=== PATIENT | male | born 1975 | race Caucasian/White ===

== ENCOUNTER 2025-03-24 10:11 | Day surgery (SDC) | payer OTHER ==
[2025-03-16 10:00] LABS: Hematocrit 46.7 % (41.0-53.0); Hemoglobin 15.4 g/dL (13.5-17.5); Mean Corpuscular Hemoglobin 30.7 pg (28.0-32.0); Mean Corpuscular Volume 92.8 fL (80.0-100.0); Nucleated Red Blood Cells % 0.1 %
[2025-03-16 10:17] LABS: INR 1.07 (0.9-1.15); Partial Thromboplastin Time 29.6 SEC (24.5-34.5); Prothrombin Time 11.3 sec (9.3-11.8)
[2025-03-16 11:15] LABS: Alanine Aminotransferase 39 U/L (7-40); Albumin 4.8 g/dL (3.2-4.8); Alkaline Phosphatase 109 U/L (46-116); Anion Gap 9 (5-15); BUN/Creatinine Ratio 11.1 (10.0-20.0); Bilirubin, Total 0.9 mg/dL (0.2-1.0); Blood Urea Nitrogen 11 mg/dL (9-23); Calcium 9.6 mg/dL (8.7-10.4); Carbon Dioxide 29 mmol/L (20-31); Chloride 104 mmol/L (98-107); Glucose 90 mg/dL (74-106); Potassium 4.3 mmol/L (3.5-5.1); Sodium 142 mmol/L (136-145); Total Protein 7.2 g/dL (5.7-8.2)
[~2025-03-24] VITALS: Ht 177.8 cm; Wt 59.0 kg
[2025-03-24 12:11] VITALS: PULSE 78; RESP 16; O2SAT 100
[2025-03-24] MEDS: MIDAZOLAM HCL 5 MG/ML-1ML VIAL ONE (12:17)
[2025-03-24] MEDS: fentaNYL CITRATE 100 MCG/2 ML VL ONE (12:17)
[2025-03-24] MEDS: diphenhydrAMINE HCL 50 MG/1 ML VL ONE (12:17)
[2025-03-24 12:45] VITALS: PULSE 59; RESP 14; TEMP 98.6; O2SAT 99
--- NOTE | 2025-03-24 12:49 | DVHOP2 ---
Operative Report DATE OF OPERATION: 03/24/25 PROCEDURE: Colonoscopy with cold biopsy polypectomy. PREOPERATIVE INDICATION: The patient is a 49 -year-old male undergoing colonoscopy for colon cancer screening POSTOPERATIVE DIAGNOSES: 1. Patient had a tiny 1-2 mm benign-appearing rectosigmoid polyp that was seen and removed by cold biopsy forceps 2. Trace internal hemorrhoids otherwise completely normal colonoscopy examination up to the cecum and terminal ileum PROCEDURE PERFORMED BY: Charlene Calderon M.D. SCOPE: Olympus videocolonoscope. ASA CLASS: 1. PREOPERATIVE MEDICATIONS: Versed 4 mg, Fentanyl 50 mcg, Benadryl 50 mg PROCEDURE IN DETAIL: After obtaining an informed consent, the patient was placed on left lateral decubitus position. He was then sedated with the above medications. A rectal examination was performed that was normal. The colonoscope was then passed through the anus into the rectosigmoid and through the descending, transverse, and ascending colon up to the cecum with visualization of the appendiceal orifice, base of the cecum and the ileocecal valve. The colonoscope was then withdrawn. The distal 10 cm of the terminal ileum were normal No masses or colitis were seen. There was no clear-cut diverticular disease. Patient had a 1-2 mm tiny rectosigmoid polyp that was seen and removed by cold biopsy forceps Retroflexion and straight on view patient had trace internal hemorrhoids The patient tolerated the procedure well without difficulty. WITHDRAWAL TIME: 10 minutes QUALITY OF THE PREP: Bypro Bowel Prep score: 9. COMPLICATIONS : None SPECIMENS: Rectosigmoid polyp DISPOSITION: Stable D/C to home PLAN: 1. Repeat colonoscopy base on biopsy result likely in 5-7 years 2. Resume GI soft diet advance as tolerated 3. Outpatient follow up with me in 4-6 weeks to review results and discuss further management CHARLENE CALDERON MD Mar 24, 2025 12:49
[2025-03-24 13:36] VITALS: BP 106/66; PULSE 62; RESP 16; O2SAT 100
== END 2025-03-24 13:27 | disposition home or self-care (01) ==
LOC: GI 10:11
PROVIDERS: ATTEND Internal Medicine Gastroenterology
DX: Z12.11 Encounter for screening for malignant neoplasm of colon (principal); K63.5 Polyp of colon; K63.89 Other specified diseases of intestine
CPT/HCPCS: 36415; 45380; 80053; 85025; 85610; 85730; 88305; A4649; J1200; J2250; J3010; J7030; 99152